=== PATIENT | female | born 1985 | race Caucasian/White ===

== ENCOUNTER 2025-01-16 10:30 | Emergency (ER) | payer OTHER ==
[2025-01-16 11:56] LABS: MEAN PLATELET VOLUME 9.4 fL (6.0-10.0); PLATELET COUNT,PLT 346.0 K/uL (150-500); RED BLOOD CELL COUNT 4.72 M/uL (3.80-5.80); RED CELL DISTRIBUTION WIDTH 12.9 % (11.0-16.0); WHITE BLOOD CELL COUNT,WBC 11.6 K/uL (4.0-11.0)
[2025-01-16 12:38] LABS: BLOOD UREA NITROGEN,BUN 10 mg/dL (8-26); GLUCOSE RANDOM 104 mg/dL (74-100)
[2025-01-16 12:39] LABS: CARBON DIOXIDE,CO2 24.9 mmol/L (21.0-32.0); CHLORIDE,CL 106 mmol/L (98-107); CREATININE 0.71 mg/dL (0.55-1.02); ESTIMATED GFR 109 mL/min (>60); POTASSIUM,K 4.4 mmol/L (3.5-5.1); SODIUM,NA 141 mmol/L (136-145)
[2025-01-16 12:41] LABS: TROPONIN I HIGH SENSITIVITY < 4.0 pg/ml (<=60.4)
== END 2025-01-16 13:07 | disposition home or self-care (01) ==
LOC: LB.ED 10:30
DX: R42 Dizziness and giddiness (principal); Z88.0 Allergy status to penicillin
CPT/HCPCS: 36415; 80048; 83735; 84484; 85027; 93005; 99284; A9270; 93010; 99283